=== PATIENT | female | born 1930 | race African-American/Black ===

== ENCOUNTER 2019-09-17 14:52 | Inpatient (IN) ==
--- NOTE | 2019-09-17 15:33 | PROVIDER DOCUMENTATION ---
HPI-Musculoskeletal Pain/Inj - GENERAL Chief Complaint: Hip Injury Stated Complaint: FALL Time Seen by Provider: 09/17/19 15:16 Source: patient - HX OF PRESENT ILLNESS-MUSKULOSKELTAL Nature of Presenting Problem: 88yof present to ER with c/o R hip pain. Pt reports she tripped down some steps off of the porch landing on R hip yesterday. Denies hitting head or LOC. Pt a&Ox3. pt nontoxic. Quality of Pain: reports: aching, throbbing Onset/Duration: 24 hours ago Timing: still present Modifying Factors: improves with: rest. worse with: movement, palpation - FALL INJURY Location of Pain/Injury: reports: pelvis (R) Pain Radiation: reports: no radiation Reason for Fall: reports: tripped Symptoms prior to fall:: reports: none Loss of Consciousness: no loss of consciousness Injury Associated Symptoms: reports: denies symptoms Review of Systems - Adult - REVIEW OF SYSTEMS - ADULT Constitutional: reports: no symptoms reported Eyes: reports: no symptoms reported Ears, Nose, Mouth & Throat: reports: no symptoms reported Cardiovascular: reports: no symptoms reported. denies: chest pain Respiratory: reports: no symptoms reported. denies: shortness of breath Gastrointestinal: reports: no symptoms reported. denies: nausea, vomiting Genitourinary: reports: no symptoms reported Musculoskeletal: reports: see HPI, other (R hip pain) Integumentary: reports: no symptoms reported Neurological: reports: no symptoms reported. denies: dizziness/vertigo, headache/migraines, numbness, paresthesia Psychiatric: reports: no symptoms reported Endocrine: reports: no symptoms reported Hematologic/Lymphatic: reports: no symptoms reported Allergic/Immunologic: reports: no symptoms reported All Other Systems: Reviewed and Negative Past History - Adult - PAST MEDICAL HISTORY-ADULT Review of Records: reports: Old Records Reviewed, Nursing Assessment Review, Medications Reviewed, Social history reviewed & non-contributory. Major Childhood Illnesses: reports: denies history Cardiovascular: reports: denies history Respiratory: reports: denies history Gastrointestinal: reports: denies history Obstetrical/Gynecological: reports: denies history Genitourinary: reports: denies history Musculoskeletal: reports: arthritis, chronic pain Neurological: reports: denies history Endocrine/Immune: reports: denies history Other Conditions: reports: denies history - SOCIAL HISTORY Smoking: chew Provider spent 3-5 mins advising pt. on dangers of tobacco.: Discussed manners to quit use, and f/u contacts for add'l counseling. Physical Exam-Injury Related - Physical Exam-Injury Related Initial Vital Signs Reviewed: Yes General Appearance: alert, no apparent distress Eyes: PERRL/EOMI Head, Ears, Nose, Mouth & Throat: moist mucous membranes, normal ENT inspection Neck: non-tender, full range of motion, supple, normal inspection. negative: C- spine tenderness Respiratory: lungs clear, normal breath sounds, no respiratory distress, no accessory muscle use Cardiovascular: normal peripheral pulses, regular rate, rhythm Peripheral Pulses: radial (R): 2+, radial (L): 2+, dorsalis-pedis (R): 2+, dorsalis-pedis (L): 2+ Abdominal Exam: non tender, soft Female Genitalia/Pelvic Exam: deferred Rectal Exam: deferred Hemoccult Exam: deferred Back Exam: normal inspection, no vertebral tenderness Extremity: normal range of motion, normal inspection, normal capillary refill, tenderness (R lateral hip). negative: deformity, erythema, pulse deficit, swelling, other (shortening or rotation) Integumentary: normal color, warm/dry. negative: ecchymosis, erythema Neurologic: grossly normal, no motor/sensory deficits Psych/Mental Status: normal mood/affect, normal thought content, normal thought process, oriented x 3 - Glascow Coma Score Best Eye Response (Flom): (4) open spontaneously Best Verbal Response (Alyssa): (5) oriented Best Motor Response (Alyssa): (6) obeys commands Progress - PLAN OF CARE/RESULTS Progress/Plan/Lab Results: Vital Signs - 8 hr 09/17/19 15:01 Temperature 99.2 F Pulse Rate 64 Respiratory Rate 18 Blood Pressure 184/84 O2 Sat by Pulse Oximetry 99 Laboratory Results - last 24 hr 09/17/19 09/17/19 16:45 16:45 WBC 7.26 RBC 3.62 L Hgb 11.6 L Hct 35.7 L MCV 98.6 MCH 32.0 H MCHC 32.5 L RDW Std Deviation 13.0 Plt Count 198 MPV 9.7 Immature Gran % (Auto) 0.0 Neut % (Auto) 79.8 H Lymph % (Auto) 15.2 L Crawford % (Auto) 4.0 Eos % (Auto) 0.7 Baso % (Auto) 0.3 Immature Gran # (Auto) 0.00 Neut # (Auto) 5.80 Lymph # (Auto) 1.10 L Crawford # (Auto) 0.29 Eos # (Auto) 0.05 Baso # (Auto) 0.02 PT 12.8 INR 0.96 PTT (Actin FS) 30.2 Orders Category Date Time Status NPO Diet 09/18/19 00:01 Active CHEST-1 VIEW [RAD] Stat Exams 09/17/19 16:09 Completed XRAY PELVIS W/HIP 2-3VW RT [RAD] Stat Exams 09/17/19 15:17 Completed CBC WITH DIFF [HEME] Stat Lab 09/17/19 16:45 Completed COMPREHENSIVE METABOLIC PANEL [CHEM] Stat Lab 09/17/19 16:45 Received PT [PROTIME WITH INR] [COAG] Stat Lab 09/17/19 16:45 Completed PTT [COAG] Stat Lab 09/17/19 16:45 Completed TROPONIN T HIGH SENSITIVITY Stat Lab 09/17/19 16:45 Received TYPE & SCREEN [BBK] Stat Lab 09/17/19 16:45 Received URINALYSIS W/POSS RFLX CULT [URINALYSIS] Stat Lab 09/17/19 15:51 Uncollected Morphine Med 09/17/19 16:13 Discontinued 4 mg IV NOW ONE Ondansetron [Zofran] Med 09/17/19 16:13 Discontinued 4 mg IV NOW ONE EKG [EKG] Stat Ther 09/17/19 15:52 Ordered Transfer/Admit Order [TRANSFER] Routine Transfer 09/17/19 16:55 Ordered Result Diagrams: 09/17/19 16:45 - REASSESSMENT Reassessment #1 Time Reassessed: 16:04 (pt and family member made aware of results and need for admission) - XRAY 1 XRAY: Right XRAY Study: Pelvis, Hip Impression: See EMR Report ( EXAM: XRAY PELVIS W/HIP 2-3VW RT 09/17/2019 HISTORY: hip pain TECHNIQUE: AP pelvis and right hip three views COMMENT: There is a fracture of the right femoral neck. There is osteoporosis. IMPRESSION: Fractured right femoral neck. Electronically signed by Edin Savage 09/17/2019 3:46 PM) 2 XRAY Study: Chest Impression: See EMR Report (EXAM: CHEST-1 VIEW 09/17/2019 HISTORY: weakness TECHNIQUE: AP upright at 1624 COMMENT: There is a calcified granuloma laterally in the right upper lobe and calcified nodes in the nolvia. There are no previous studies. There is no evidence of acute pulmonary disease. IMPRESSION: No acute disease. Electronically signed by Edin Savage 09/17/2019 4:28 PM) - CONSULTS/PCP/HOSPITALIST Notification #1 *Consult/PCP/Hospitalist*: Dr Dos Santos Time Discussed: 16:14 (NPO after midnight) Consult Disposition: Admit #2 Consult: Dr Rai Time Discussed: 16:28 Consult Disposition: Will see in ED, Admit Departure - Departure Date of Disposition Decision: 09/17/19 Time of Disposition Decision: 16:07 DIAGNOSIS: Femoral neck fracture Qualifiers: Encounter type: initial encounter Fracture type: closed Laterality: right Qualified Code(s): S72.001A - Fracture of unspecified part of neck of right femur, initial encounter for closed fracture Disposition: ADMITTED INPATIENT 09 Certified Medical Emergency: Emergent Condition: Stable - Critical Care Note This patient required my direct & personal management of CC.: No Attestation - Physician/ XU Attestation Patient care was provided by Advanced Practice Provider:: Yes Advanced Practice Provider:: Angela Shankar Advanced Practice Provider documentation review:: The Mid-level provider documentation, treatment plan and medical decision making was reviewed by the physician who agrees with all treatment and medical decision making by the P. The physician spent face to face time with patient:: No Advanced Practice Provider documentation review:: Supervising physician onsite and consulted in the evaluation and care of this patient. The physician did not have a face to face encounter with the patient.
--- NOTE | 2019-09-17 15:48 | Diag Imaging Result Doc PS360 ---
EXAM: XRAY PELVIS W/HIP 2-3VW RT 09/17/2019 HISTORY: hip pain TECHNIQUE: AP pelvis and right hip three views COMMENT: There is a fracture of the right femoral neck. There is osteoporosis. IMPRESSION: Fractured right femoral neck. Electronically signed by Edin Savage 09/17/2019 3:46 PM
[2019-09-17] MEDS ORDERED: ZOFRAN IV ONE (16:13)
[2019-09-17] MEDS ORDERED: MORPHINE IV ONE (16:13)
--- NOTE | 2019-09-17 16:31 | Diag Imaging Result Doc PS360 ---
EXAM: CHEST-1 VIEW 09/17/2019 HISTORY: weakness TECHNIQUE: AP upright at 1624 COMMENT: There is a calcified granuloma laterally in the right upper lobe and calcified nodes in the nolvia. There are no previous studies. There is no evidence of acute pulmonary disease. IMPRESSION: No acute disease. Electronically signed by Edin Savage 09/17/2019 4:28 PM
[2019-09-17 17:07] LABS: BASO# 0.02 X1000 (0.0-0.2); BASO% 0.3 % (0.0-0.8); EOS# 0.05 X1000 (0.0-0.7); EOS% 0.7 % (0.0-10.0); HEMATOCRIT 35.7 % (37.0-47.0); HEMOGLOBIN 11.6 g/dL (12.0-16.0); LYMPH% 15.2 % (20.5-51.1); MCHC 32.5 g/dL (33-37); MCV 98.6 FL (81-99); MONO# 0.29 X1000 (0.11-0.59); MPV 9.7 FL (7.4-10.4); NEUT% 79.8 % (42.2-75.2); PLT 198 X1000 (130-400); RBC 3.62 XMIL (4.2-5.4); WBC 7.26 X1000 (4.8-10.8)
[2019-09-17 17:18] LABS: INR 0.96; PROTIME 12.8 Seconds (11.0-16.0)
[2019-09-17 17:19] LABS: PTT 30.2 Seconds (22.3-41.8)
--- NOTE | 2019-09-17 17:24 | HISTORY AND PHYSICAL ---
HISTORY OF PRESENT ILLNESS: Ms. Katz is an 88-year-old black female patient of mine. She was carrying I think a laundry basket and she slipped and fell, and she broke her right femur neck. She does have some osteoporosis. PAST MEDICAL HISTORY: Pretty unremarkable; osteoarthritis; she gets some muscle cramps, otherwise pretty uneventful. ALLERGIES: Celecoxib. FAMILY HISTORY: Positive for hypertension, some coronary artery disease and diabetes mellitus. SOCIAL HISTORY: Negative for alcohol or tobacco. REVIEW OF SYSTEMS: No recent weight gain or loss. No fever or chills.HEENT: Unremarkable. No change in visual or hearing acuity. Respiratory: No increased work of breathing or dyspnea. Cardiovascular: No chest pain or tachycardic palpitation. GI and : No gross hematuria or dysuria. Musculoskeletal/neurologic: No new complaints. She has suffered from arthritis in her hips and in her lower back, and some in her knees and hands. No skin rashes. Oral and nasal mucosa without any lesions or rashes complaints. PHYSICAL EXAMINATION: GENERAL: Awake, alert, pleasant, oriented x3. Weight 120 pounds, height 5 feet 4 inches. VITAL SIGNS: Temperature 99.2 degrees, pulse 64, respirations 18, blood pressure 184/84. HEENT: Pupils are equal and round. LUNGS: Clear in all lung cage. CARDIOVASCULAR: Regular rhythm and rate without murmur or S3. ABDOMEN: Soft. SKIN: Warm and dry. DIAGNOSTIC DATA: Chest x-ray: No acute disease. There is a calcified granuloma laterally in the right upper lobe. Calcified nodes in the nolvia. No previous studies to compare. No evidence of acute pulmonary disease. X-ray of the pelvis and hip on the right: Fracture of right femur neck. LABORATORY DATA: Pending at this time. ASSESSMENT AND PLAN: Right femur neck fracture. Dr. Dos Santos aware. I think he is planning on doing surgery in the morning. We will check an electrocardiogram, and she should be ready for surgery. We have discussed the plan of rehab. We will give her some pain medicine for pain control and some intravenous fluids, put in a Mercer catheter. cc: Eddie Rai MD
[2019-09-17 17:30] LABS: ALB/GLOB RATIO 1.4; ALBUMIN 4.1 g/dL (3.5-5.0); CREATININE 1.2 mg/dL (0.5-0.9); POTASSIUM 4.2 mmol/L (3.5-5.1); TOTAL BILIRUBIN 0.33 mg/dL (0.20-1.00)
[2019-09-17 17:39] LABS: URINE SOURCE CLEAN CATCH
[2019-09-17 17:41] LABS: BILIRUBIN URINE NEGATIVE (NEGATIVE); BLOOD URINE NEGATIVE (NEGATIVE); COLOR STRAW; GLUCOSE URINE NEGATIVE (NEGATIVE); KETONE URINE NEGATIVE (NEGATIVE); LEUKOCYTES URINE NEGATIVE (NEGATIVE); NITRITE URINE NEGATIVE (NEGATIVE); PROTEIN URINE NEGATIVE (NEGATIVE); SP GRAVITY URINE 1.008; TURBIDITY URINE CLEAR (CLEAR); UR EPITHELIAL CELLS <10 /HPF (<10); URINE BACTERIA NEGATIVE /HPF; URINE RBC <10 /HPF (<10); URINE WBC <10 /HPF (<10); UROBILINOGEN URINE NORMAL (NORMAL)
[2019-09-17] MEDS ORDERED: MORPHINE IV PRN (17:43)
[2019-09-17] MEDS ORDERED: NS + KCL 20 MEQ 1,000 ML IV SCH (17:43)
[2019-09-17] MEDS ORDERED: ZOFRAN IV PRN (17:43)
--- NOTE | 2019-09-17 18:17 | EKG Report ---
Test Performed on : 09/17/2019 6:14:59 PM Test Reason : CP Blood Pressure : / mmHG Vent. Rate : 081 BPM Atrial Rate : 081 BPM P-R Int : 268 ms QRS Dur : 096 ms QT Int : 416 ms P-R-T Axes : 079 010 065 degrees QTc Int : 483 ms Sinus rhythm. with 1st degree AV block. Possible Anterior infarct , age undetermined Abnormal ECG No previous ECGs available Unconfirmed Result
[2019-09-17] MEDS: TYLENOL PO PRN (18:49)
--- NOTE | 2019-09-17 21:20 | ORTHOPAEDICS CONSULTATION ---
DATE: 09/17/2019 HISTORY OF PRESENT ILLNESS: Patient is a pleasant, 88-year-old female, who slipped and fell earlier this evening and developed immediate pain and discomfort in her right hip. She denies loss of consciousness. She was seen in the emergency room, x-rays revealed a right femoral neck fracture. The patient does have a history of osteoporosis. Orthopedic consultation was requested. ALLERGIES: Celecoxib. PAST MEDICAL HISTORY: Osteoarthritis, osteoporosis. PHYSICAL EXAMINATION: Patient is awake, alert, cooperative with exam. Musculoskeletal: Cervical spine is nontender to palpation. Her bilateral upper extremities have no tenderness to palpation. No palpable deformities. She has good range of motion. No significant discomfort with range of motion. Her right lower extremity has tenderness to palpation on the hip and pain with gentle movement. Calf is soft. She has active dorsiflexion and plantar flexion. Her left lower extremity is nontender to palpation on the hip, knee, or ankle. Compartments are soft. DIAGNOSTIC DATA: X-rays of the right hip did reveal evidence of right femoral neck fracture with some displacement. IMPRESSION: Right femoral neck fracture. PLAN: At this point, I discussed treatment options with patient and family. At this time, would recommend to proceed with hemiarthroplasty of right hip. Risks and benefits of surgery explained, including risks of anesthesia, , bleeding, infection, failure to relieve pain, postoperative stiffness, nerve injury, blood clots, and other imponderables. All questions were answered. The patient and family agree with treatment plan. We plan on proceeding with surgery tomorrow. cc: MD Eddie Otoole MD
[2019-09-18] MEDS: TYLENOL PO PRN (02:34)
[2019-09-18] MEDS: PRILOSEC PO SCH (06:50)
[2019-09-18] MEDS ORDERED: FENTANYL ONE (07:39)
[2019-09-18] MEDS ORDERED: DIPRIVAN 1% ONE ×2 (07:39→08:59)
[2019-09-18] MEDS ORDERED: XYLOCAINE-MPF 2% ONE (07:40)
[2019-09-18] MEDS ORDERED: KEFZOL 1 GM/D5W 1 GM/50 ML IVPB ONE (07:45)
[2019-09-18] MEDS ORDERED: NEOSPORIN G.U. IRRIGANT ONE (07:45)
[2019-09-18] MEDS ORDERED: DURAMORPH ONE (08:07)
[2019-09-18] MEDS ORDERED: SODIUM CHLORIDE 0.9% ONE (08:07)
[2019-09-18] MEDS ORDERED: TORADOL ONE (08:07)
[2019-09-18] MEDS ORDERED: EXPAREL 1.3% ONE (08:08)
[2019-09-18] MEDS ORDERED: MARCAINE 0.25% PF ONE (08:09)
--- NOTE | 2019-09-18 09:45 | PROGRESS NOTE ---
DATE: 09/18/2019 SUBJECTIVE: She is ready to go for surgery. She has a fractured hip. OBJECTIVE: Vital signs: Remains afebrile, temperature 98.6 degrees, pulse 70, respirations 20, blood pressure 170/79. HEENT: Pupils are equal and round. Lungs: Lungs are clear in all lung cage. Cardiovascular: Regular rhythm and rate without murmur or S3. Abdomen: Abdomen is soft. Skin: Skin is warm and dry. Intake and Output: Urine output is 3400 mL. ASSESSMENT AND PLAN: 1. Right femoral neck fracture, to go for surgery for repair, open reduction and internal fixation. 2. History of hypertension. We will watch her blood pressures. 3. Nutrition looks good. 4. Preop hematocrit 35, hemoglobin 11.6. cc: Eddie Rai MD
--- NOTE | 2019-09-18 09:57 | OPERATIVE NOTE ---
PROCEDURE DATE: 09/18/2019 PREOPERATIVE DIAGNOSIS: Right femoral neck fracture. POSTOPERATIVE DIAGNOSIS: Right femoral neck fracture. PROCEDURE PERFORMED: Hemiarthroplasty of right hip with DePuy Actis size 6 press-fit stem, a 28, + 1.5 femoral head, and a 28 x 47 bipolar head. SURGEON: Fernando Dos Santos MD. FIRST ASSISTANTS: JULIET Jean, who was necessary for proper positioning, retraction, manipulation of the extremity during the case, and improved efficiency. ANESTHESIA: Spinal. IV FLUIDS: Lactated Ringer's, 1300 mL. ESTIMATED BLOOD LOSS: 200 mL. COMPLICATIONS: None. INDICATION: The patient is a pleasant, 88-year-old female who is 1 day status post fall, sustaining a right femoral neck fracture. She was admitted to the hospital and orthopedic consultation requested. After review of the films, recommendation to proceed with hemiarthroplasty was offered. Risks and benefits of surgery were explained including the risks of anesthesia, , bleeding, infection, failure to relieve pain, postoperative stiffness, nerve injury, blood clots, and other imponderables. All questions were answered. The patient and family wished to proceed with surgery. DETAILS OF THE OPERATION: The patient was taken to the operating room and underwent spinal anesthesia. After adequate anesthesia was obtained, she was placed in the left lateral decubitus position on a olivo bag with an axillary roll. The right hip was subsequently prepped and draped in the usual sterile fashion. A standard lateral incision was made and a posterior approach was performed. The incision was carried down through the gluteus renee, in line with the incision. A Charnley retractor was then placed. The piriformis tendon was then identified and a stay suture was placed. The piriformis tendon along with the short external rotator were released. After this had been performed, a T-shaped capsulotomy was then performed. Number 1 Vicryl was placed on each corner of the capsule. The fracture site was then identified. Approximately 1 fingerbreadth proximal to the lesser trochanter, the femoral neck was resected. This was then removed, as well as with the femoral head. After this had been performed, the intramedullary guide was dilated with a starting broach. This followed by a starting reamer. Sequential broaching was then performed to a size 6. A calcar planer was then placed. The trial femoral neck and head size were then placed. The patient had excellent stability with a 28, +1.5 femoral head with a 28 x 47 bipolar head. The trial implant was removed. The wound was copiously irrigated. A size 6 Actis press-fit stem was then impacted. This was followed by a 28, +1.5 femoral head and a 28 x 47 bipolar head. The hip was reduced, carried through a range of motion. It had excellent stability and range of motion. The wound was copiously once again. Exparel was placed in the deep soft tissue. The wound was copiously irrigated once again. Then #1 Vicryl was used to repair the posterior capsule as well as a #1 Vicryl was used to repair the piriformis tendon. The wound was copiously irrigated once again. Remaining Exparel was placed in the deep soft tissue as well as subcutaneous tissue. Irrigation was performed once again. Number 1 Vicryl was used to repair the gluteus renee in a running fashion, followed by 2-0 Vicryl and skin braxton. Adaptic, sterile 4x4s ABD pad, and tape were applied to the right hip. Patient tolerated the procedure well. No complications. Transferred to the recovery room in stable condition. cc: MD Eddie Otoole MD
--- NOTE | 2019-09-18 10:16 | Diag Imaging Result Doc PS360 ---
EXAM: HIP 1 VIEW RIGHT 09/18/2019 HISTORY: rt bipolar hip TECHNIQUE: Right hip AP only COMMENT: There is a bipolar hip prosthesis. There is an apparent fracture of the pubic portion of the acetabulum medially. This was not present on the previous radiograph of 09/17/2019. IMPRESSION: Apparent fracture of the medial acetabulum. The findings were discussed with Tesfaye Dos Santos MD at 09/18/2019 10:14 AM. Electronically signed by Edin Savage 09/18/2019 10:14 AM
[2019-09-18] MEDS ORDERED: NS 1,000 ML ONE (10:27)
[2019-09-18] MEDS ORDERED: ZOFRAN IV PRN (10:36)
[2019-09-18] MEDS ORDERED: MORPHINE IV PRN (10:36)
[2019-09-18] MEDS ORDERED: MILK OF MAGNESIA PO PRN (10:36)
[2019-09-18] MEDS ORDERED: HALDOL IV PRN (10:45)
--- NOTE | 2019-09-18 10:56 | Diag Imaging Result Doc PS360 ---
EXAM: XRAY PELVIS W/HIP 2-3VW RT 09/18/2019 HISTORY: rt bipolar hip TECHNIQUE: AP and lateral portable right hip COMMENT: The lucent line which was demonstrated over the right pelvic rim on the previous study at 0952 is not visible on this study. It was likely artifactual. IMPRESSION: No evidence of acetabular fracture. Electronically signed by Edin Savage 09/18/2019 10:54 AM
[2019-09-18] MEDS: TYLENOL PO SCH ×3 (11:26→23:01)
[2019-09-18] MEDS: NS 1,000 ML IV SCH (11:28)
[2019-09-18] MEDS: KEFZOL 1 GM/D5W 1 GM/50 ML IVPB IV SCH ×2 (15:00→23:01)
[2019-09-18] MEDS: COLACE PO SCH (21:44)
[2019-09-19] MEDS: OXY IR PO PRN ×2 (01:07→12:04)
[2019-09-19] MEDS: PRILOSEC PO SCH (06:28)
[2019-09-19] MEDS: XARELTO PO SCH (06:28)
--- NOTE | 2019-09-19 06:56 | ORTHOPAEDICS PROGRESS NOTE ---
DATE: 09/19/2019 SUBJECTIVE: The patient is an 88-year-old female who is 1 day status post hemiarthroplasty of the right hip. She is experiencing expected discomfort this morning. PHYSICAL EXAMINATION: On physical exam, the right lower extremity, her hip, her dressing is intact. Her calf is soft. She has active dorsiflexion and plantar flexion. LABORATORIES: Pending. IMPRESSION: Postoperative day number 1, status post hemiarthroplasty of the right hip. PLAN: At this point, we will begin mobilization with physical therapy and weightbearing starting of the right lower extremity. We will consult Deputy Clerk Of Court for discharge planning. cc: MD Eddie Otoole MD
[2019-09-19 07:38] LABS: HEMATOCRIT 25.6 % (37.0-47.0); HEMOGLOBIN 8.5 g/dL (12.0-16.0)
[2019-09-19 08:04] LABS: CALCIUM 8.5 mg/dL (8.8-10.2); CREATININE 1.2 mg/dL (0.5-0.9); POTASSIUM 4.8 mmol/L (3.5-5.1)
--- NOTE | 2019-09-19 08:56 | PROGRESS NOTE ---
DATE: 09/19/2019 SUBJECTIVE: Ms. Katz was trying to get out of bed. She was wanting to eat her breakfast. There was a little confusion. I reminded her she had a fractured hip, and she could not get out of bed without help. We did position her so she could eat her breakfast. OBJECTIVE: Temperature is 98 degrees. She remains afebrile. Pulse 79, respirations 20, and blood pressure 139/63. No distended neck veins. Lungs are clear anterolateral. Cardiovascular exam regular rhythm and rate without murmur or S3. Abdomen is soft. Skin is warm and dry. Urine output is 4300 mL. ASSESSMENT AND PLAN: 1. Postoperative day 1 status post hemiarthroplasty of the right hip. Initiate physical therapy. 2. Hemodynamically stable. 3. Blood loss and microcytic anemia. Hematocrit 25 and hemoglobin 8.5. REVIEW OF ORDERS: She is getting oxycodone IR 5 mg q.3 hours p.r.n. pain. Normal saline going at 83 mL an hour. She is on iron 325 mg a day, and they started Xarelto at 10 mg p.o. daily. I think the plan is to try and go to rehab. cc: Eddie Rai MD
[2019-09-19] MEDS: KEFZOL 1 GM/D5W 1 GM/50 ML IVPB IV SCH (12:04)
[2019-09-19] MEDS: FERROUS SULFATE PO SCH (12:04)
[2019-09-19] MEDS: PERIDEX MT SCH (12:04)
[2019-09-19] MEDS: TYLENOL PO SCH ×2 (12:06→23:34)
[2019-09-19] MEDS: NS 1,000 ML IV SCH (23:34)
[2019-09-20] MEDS: TYLENOL PO SCH ×3 (01:14→12:00)
[2019-09-20] MEDS: COLACE PO SCH ×2 (01:14→22:45)
[2019-09-20] MEDS: PERIDEX MT SCH ×3 (01:15→22:44)
[2019-09-20] MEDS: PRILOSEC PO SCH (06:22)
[2019-09-20] MEDS: XARELTO PO SCH (06:22)
[2019-09-20 06:59] LABS: HEMATOCRIT 23.5 % (37.0-47.0); HEMOGLOBIN 7.7 g/dL (12.0-16.0)
--- NOTE | 2019-09-20 09:50 | PROGRESS NOTE ---
DATE: 09/20/2019 SUBJECTIVE: Ms. Katz is doing very well, eating breakfast, tolerating physical therapy. She has remained afebrile. OBJECTIVE: Vital Signs: Temp 97.9 degrees, pulse 87, respirations 16, blood pressure 136/48. HEENT: Pupils are equal and round. Lungs: Clear anterolateral and posterior. Cardiovascular: Regular rhythm and rate without murmur or S3. Abdomen: Soft, nondistended. Skin: Warm and dry. Urine output 4300 mL. ASSESSMENT AND PLAN: 1. Postoperative day 2 status post hemiarthroplasty, right fractured hip. Tolerating physical therapy, doing well. 2. Hemodynamically stable. 3. She has mild blood loss microcytic anemia. Hemoglobin is 7.7, hematocrit 23. She is on iron. Yesterday, hemoglobin was 8.5. REVIEW OF ORDERS: She is on oxycodone IR for pain (seems to be effective). She is on Xarelto 10 mg daily for anticoagulant. She is on iron, ferrous sulfate. We are looking for rehab. It looks like it is going to be [facility]. I think she is ready go when rehab bed available. cc: Eddie Rai MD
--- NOTE | 2019-09-20 10:16 | ORTHOPAEDICS PROGRESS NOTE ---
DATE: 09/20/2019 SUBJECTIVE: Patient was 88-year-old female who is 2 days status post hemiarthroplasty right hip. She was able to get some rest, still having some discomfort in the right hip. OBJECTIVE: Right lower extremity: Her wound looks good. There is no signs or symptoms of infection. Calf is soft. She has active dorsiflexion plantar flexion. LABORATORY DATA: Labs are pending this morning. Her hemoglobin and hematocrit from yesterday was 8.5 and 25.6. IMPRESSION: Postoperative day #2 status post hemiarthroplasty right hip. PLAN: At this point, we will continue mobilization with physical therapy. environmental services supervisor have been consulted for discharge planning for inpatient rehabilitation. cc: MD Eddie Otoole MD
[2019-09-20] MEDS: FERROUS SULFATE PO SCH (11:43)
[2019-09-20] MEDS: OXY IR PO PRN ×2 (11:43→15:57)
[2019-09-20] MEDS: TYLENOL PO PRN (22:45)
[2019-09-21 07:03] LABS: HEMATOCRIT 22.5 % (37.0-47.0); HEMOGLOBIN 7.4 g/dL (12.0-16.0)
[2019-09-21] MEDS: XARELTO PO SCH (07:04)
[2019-09-21] MEDS: PRILOSEC PO SCH (07:05)
[2019-09-21] MEDS: TYLENOL PO PRN (07:05)
[2019-09-21] MEDS: NS 1,000 ML IV SCH ×2 (08:06→13:19)
[2019-09-21] MEDS: FERROUS SULFATE PO SCH (08:30)
[2019-09-21] MEDS: PERIDEX MT SCH (08:30)
--- NOTE | 2019-09-21 09:24 | DISCHARGE SUMMARY ---
ADMISSION DATE: 09/17/2019 DISCHARGE DATE: 09/21/2019 HISTORY OF PRESENT ILLNESS: This is an 88-year-old, black female, patient of mine for many years. She was, I think, carrying a laundry basket. She slipped and fell and broke the neck of her right femur. She does have some osteoporosis. PAST MEDICAL HISTORY: Unremarkable, other than mainly osteoarthritis. ALLERGIES: Celecoxib. FAMILY HISTORY: Positive for hypertension, some coronary artery disease, diabetes mellitus. SOCIAL HISTORY: Negative for alcohol and tobacco. HOSPITAL COURSE: She was admitted to the hospital. Dr. Dos Santos performed surgery on her (that was on 09/18/2019). She tolerated the procedure well and tolerated physical therapy well. She had a mild blood loss anemia following surgery. Hematocrit was 22, hemoglobin 7.4. She is on iron. She was put on Oxy IR for pain, and put on Xarelto 10 mg daily for DVT prophylaxis. She was accepted at [facility], and so plan to go to [facility] on 09/21/2019. DISCHARGE ORDERS AND MEDICATIONS: She can take Tylenol 650 mg p.o. every 4 hours p.r.n., Colace 200 mg at bedtime, ferrous sulfate 325 mg a day, Prilosec 40 mg a day, Oxy IR 5 mg p.o. every 3 hours p.r.n., Xarelto 10 mg every 24 hours for another 20 days, and will get her ready for discharge. cc: Eddie Rai MD
[2019-09-21] MEDS ORDERED: NS 500 ML ONE (10:39)
[2019-09-21 15:19] VITALS: BP 148/71
[2019-09-21 15:30] LABS: HEMATOCRIT 29.8 % (37.0-47.0); HEMOGLOBIN 9.6 g/dL (12.0-16.0)
== END 2019-09-21 16:45 | DRG 470 ==
LOC: SUPCPDRO → ED 14:52 → SUATTDRO 17:07 → EDIPHOLD 17:07 → 4N 18:44
PROVIDERS: ADMIT Emergency Medicine; ATTEND Emergency Medicine